=== PATIENT | male | born 1990 | race Caucasian/White ===

== ENCOUNTER 2017-08-11 17:00 | Emergency (ER) | payer OTHER ==
[2017-08-11] MEDS ORDERED: Sodium Chloride 0.9% 10 ML Syringe FLUSH PRN (17:24)
[2017-08-11] MEDS ORDERED: Lactated Ringers 1,000 ML IV ONE (17:24)
[2017-08-11] MEDS ORDERED: Sodium Chloride 0.9% 2.5 ML Syringe FLUSH PRN (17:24)
[2017-08-11] MEDS ORDERED: Ketorolac 30 MG/ML SDV IVPUSH ONE (17:26)
[2017-08-11 18:14] LABS: CHLORIDE,CL 104 mmol/L (98-107); SODIUM,NA 142 mmol/L (136-148)
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
== END 2017-08-11 19:26 | disposition home or self-care (01) ==
LOC: MW.ED 17:00
DX: S57.81XA Crushing injury of right forearm, initial encounter (principal); S52.201A Unspecified fracture of shaft of right ulna, initial encounter for closed fracture; Z88.5 Allergy status to narcotic agent; V69.9XXA Occupant (driver) (passenger) of heavy transport vehicle injured in unspecified traffic accident, initial encounter
CPT/HCPCS: 36415; 73090; 80048; 82550; 96365; 96366; 99284; J1885; J7120

== ENCOUNTER 2019-02-28 11:29 | Emergency (ER) | payer OTHER ==
[2019-02-28] MEDS ORDERED: Sodium Chloride 0.9% 2.5 ML Syringe FLUSH PRN (11:41)
[2019-02-28] MEDS ORDERED: Sodium Chloride 0.9% 10 ML Syringe FLUSH PRN (11:41)
[2019-02-28] MEDS ORDERED: Tetracaine HCl/PF 0.5% 4 ML Bottle EYEBOTH ONE (11:41)
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
[2019-02-28] MEDS ORDERED: Diphtheria,Pertussis(Acell),Tetanus Vaccine 0.5 ML Syringe IM ONE (11:42)
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
[2019-02-28] MEDS ORDERED: Bacitracin Oint 1 GM U/D Packet TOP ONE (12:44)
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
== END 2019-02-28 13:20 | disposition home or self-care (01) ==
LOC: MW.ED 11:29
DX: T20.24XA Burn of second degree of nose (septum), initial encounter (principal); T20.22XA Burn of second degree of lip(s), initial encounter; T20.26XA Burn of second degree of forehead and cheek, initial encounter; T31.0 Burns involving less than 10% of body surface; Z88.5 Allergy status to narcotic agent; Z23 Encounter for immunization; X08.8XXA Exposure to other specified smoke, fire and flames, initial encounter; Y93.89 Activity, other specified; Y92.89 Other specified places as the place of occurrence of the external cause; Y99.0 Civilian activity done for income or pay
CPT/HCPCS: 71045; 71045-26; 90471; 90715; 99283-25; 99285